=== PATIENT | female | born 1995 | race Caucasian/White ===

== ENCOUNTER 2017-09-25 10:48 | Emergency (ER) | payer MEDICAID ==
[~2017-09-25] VITALS: Ht 154.9 cm; Wt 63.5 kg
[2017-09-25 11:08] VITALS: BP 129/69
[2017-09-25] MEDS ORDERED: ACETAMINOPHEN 325 MG TAB PO ONE ×2 (11:19→11:30)
== END 2017-09-25 14:17 | disposition home or self-care (01) ==
LOC: ER 10:48
DX: J40 Bronchitis, not specified as acute or chronic (principal); R51 Headache